=== PATIENT | male | born 1940 | race Two or more races ===

== ENCOUNTER 2022-04-14 08:35 | Inpatient (IN) | payer OTHER ==
[~2022-04-14] VITALS: Ht 172.7 cm; Wt 83.5 kg
[~2022-04-14 08:35] MED LIST: ALPR0.25 PO; FINA5TAB4 PO; PAR20T PO; TAM04C PO
[2022-04-14] MEDS ORDERED: HYDROmorphone HCL 2 MG/ML VL/or syr ONE (09:07)
[2022-04-14] MEDS ORDERED: DexAMETHasone SOD PHOS 10MG/1ML VIAL INJ ONE (09:07)
[2022-04-14] MEDS ORDERED: SODIUM CHLORIDE LOCK 20 ML ONE (09:07)
[2022-04-14] MEDS ORDERED: PROPOFOL 10 MG/ML 20 ML IV ONE (09:07)
[2022-04-14] MEDS ORDERED: NEOSTIGMINE 1 MG/ML INJ (10mg/10ML VIAL) ONE (09:07)
[2022-04-14] MEDS ORDERED: fentaNYL CITRATE 100 MCG/2 ML VL ONE (09:07)
[2022-04-14] MEDS ORDERED: MIDAZOLAM HCL 2MG/2ML 2ml VIAL (1mg/ml) ONE ×2 (09:07→12:27)
[2022-04-14] MEDS ORDERED: ONDANSETRON HCL 4 MG/2 ML VIAL ONE (09:07)
[2022-04-14] MEDS ORDERED: ceFAZolin 1GM/50ML 100 ML IV ONE (11:59)
[2022-04-14] MEDS ORDERED: METOCLOPRAMIDE HCL 5MG/ml INJ 2ml VIAL IV PRN (12:15)
[2022-04-14] MEDS ORDERED: MORPHINE SULFATE INJ 2 MG/ml SYRG IV PRN ×3 (12:15→17:30)
[2022-04-14] MEDS ORDERED: HYDROmorphone HCL 2 MG/ML VL/or syr IV PRN ×2 (12:15)
[2022-04-14] MEDS ORDERED: MINERAL OIL TOPICAL 10ml TOP ONE (15:10)
[2022-04-14] MEDS ORDERED: ACETAMINOPHEN 325 MG TAB PO PRN (17:30)
[2022-04-14] MEDS ORDERED: HYDROcodone-ACET 10/325MG TAB PO PRN (17:30)
[2022-04-14] MEDS ORDERED: ONDANSETRON HCL 4 MG/2 ML VIAL IV PRN (17:30)
[2022-04-14] MEDS ORDERED: NITROGLYCERIN 0.4 MG SL TAB SL PRN (17:30)
[2022-04-14] MEDS ORDERED: ceFAZolin 1GM/50ML 50 ML IV SCH (17:30)
[2022-04-14] MEDS ORDERED: CYCLOBENZAPRINE HCL 10 MG TAB PO ONE (18:15)
[2022-04-14] MEDS: D5W/SOD CHLO 0.9% 1,000 ML IV SCH (18:50)
[2022-04-14 20:00] VITALS: BP 111/93
[2022-04-14] MEDS: DOCUSATE SOD 100 MG CAP PO SCH (21:13)
[2022-04-14] MEDS: CYCLOBENZAPRINE HCL 10 MG TAB PO SCH (21:13)
[2022-04-14 22:00] VITALS: BP 111/93
[2022-04-15] MEDS: D5W/SOD CHLO 0.9% 1,000 ML IV SCH ×4 (03:30→23:30)
[2022-04-15 05:00] VITALS: BP 111/41
[2022-04-15] MEDS: CYCLOBENZAPRINE HCL 10 MG TAB PO SCH ×3 (05:40→21:50)
[2022-04-15 09:00] VITALS: BP 96/55
[2022-04-15] MEDS: DOCUSATE SOD 100 MG CAP PO SCH ×2 (09:32→21:50)
[2022-04-15 13:00] VITALS: BP 106/50
[2022-04-15 16:41] VITALS: BP 109/55
[2022-04-15 20:00] VITALS: BP 120/61
[2022-04-15] MEDS: PARoxetine 20 MG TAB PO SCH (21:49)
[2022-04-15 22:00] VITALS: BP 120/61
[2022-04-16 05:00] VITALS: BP 122/63
[2022-04-16] MEDS: CYCLOBENZAPRINE HCL 10 MG TAB PO SCH ×3 (05:53→21:46)
[2022-04-16] MEDS: D5W/SOD CHLO 0.9% 1,000 ML IV SCH (06:07)
[2022-04-16] MEDS: DOCUSATE SOD 100 MG CAP PO SCH ×2 (08:23→21:46)
[2022-04-16] MEDS: PARoxetine 20 MG TAB PO SCH (08:23)
[2022-04-16 09:00] VITALS: BP 106/67
[2022-04-16 13:00] VITALS: BP 123/61
[2022-04-16] MEDS ORDERED: TAMSULOSIN HYDROCHLORIDE 0.4 MG CAP PO ONE (13:30)
[2022-04-16] MEDS ORDERED: FINASTERIDE 5 MG TAB PO ONE (13:30)
[2022-04-16] MEDS: MORPHINE SULFATE INJ 2 MG/ml SYRG IV PRN (14:00)
[2022-04-16 15:16] VITALS: BP 120/51
[2022-04-16] MEDS: SUCRALFATE 1 GM/10 ML ORAL SUSP PO SCH (16:47)
[2022-04-16 16:57] VITALS: BP 115/63
[2022-04-16] MEDS ORDERED: cefTRIAXone 1GM/50ML D5W 50 ML IV ONE (17:00)
[2022-04-16] MEDS ORDERED: ACETAMINOPHEN 325 MG TAB PO PRN (17:00)
[2022-04-16] MEDS: ALPRAZolam 0.25 MG TAB PO SCH (21:47)
[2022-04-16 22:00] VITALS: BP 103/58
[2022-04-17 05:00] VITALS: BP 114/62
[2022-04-17] MEDS: CYCLOBENZAPRINE HCL 10 MG TAB PO SCH ×3 (06:09→21:52)
[2022-04-17] MEDS: SUCRALFATE 1 GM/10 ML ORAL SUSP PO SCH ×3 (06:09→17:00)
[2022-04-17 06:51] LABS: Basophils # (auto) 0 10 ^3/uL (0-0.2); Basophils % (auto) 0.4 % (0.0-2.0); Eosinophils # (auto) 0.2 10 ^3/uL (0-0.8); Eosinophils % (auto) 3.1 % (0.0-7.0); Lymphocytes # (auto) 1.6 10 ^3/uL (0.4-5.4); Monocytes # (auto) 0.7 10 ^3/uL (0-1.3); Neutrophils # (auto) 4.4 10 ^3/uL (1.6-8.6); White Blood Cell 6.9 10^3/uL (4.4-10.8)
[2022-04-17 06:53] LABS: Lymphocytes % (auto) 22.8 % (10.0-50.0); Mean Corpuscular Hemoglobin 28.4 pg (28.0-32.0); Mean Corpuscular Hgb Conc. 34.9 g/dL (32.0-36.0); Mean Corpuscular Volume 81.5 fL (80.0-100.0); Monocytes % (auto) 10.2 % (0.0-12.0); Neutrophils % (auto) 63.5 % (37.0-80.0); Nucleated Red Blood Cells % 0.1 %; Red Blood Cells 2.82 10^6/uL (4.5-5.90); Red Cell Distribution Width 14.6 % (11.8-14.3)
[2022-04-17 07:20] LABS: BUN/Creatinine Ratio 21.8; Calcium 8.1 mg/dL (8.5-10.1); Potassium 4.2 mmol/L (3.5-5.1)
[2022-04-17 08:30] VITALS: BP 99/59
[2022-04-17] MEDS: cefTRIAXone 1GM/50ML D5W 50 ML IV SCH (10:14)
[2022-04-17] MEDS: PARoxetine 20 MG TAB PO SCH (10:17)
[2022-04-17] MEDS: FINASTERIDE 5 MG TAB PO SCH (10:17)
[2022-04-17] MEDS: DOCUSATE SOD 100 MG CAP PO SCH ×2 (10:17→21:52)
[2022-04-17 13:00] VITALS: BP 103/61
[2022-04-17] MEDS: TAMSULOSIN HYDROCHLORIDE 0.4 MG CAP PO SCH (13:54)
[2022-04-17 17:14] VITALS: BP 127/56
[2022-04-17] MEDS: ALPRAZolam 0.25 MG TAB PO SCH (21:52)
[2022-04-17] MEDS: MORPHINE SULFATE INJ 2 MG/ml SYRG IV PRN (21:54)
[2022-04-17 22:00] VITALS: BP 110/59
[2022-04-18 05:10] VITALS: BP 115/73
[2022-04-18] MEDS: CYCLOBENZAPRINE HCL 10 MG TAB PO SCH ×3 (05:56→21:30)
[2022-04-18] MEDS: SUCRALFATE 1 GM/10 ML ORAL SUSP PO SCH ×3 (05:56→17:00)
[2022-04-18 09:11] VITALS: BP 105/54
[2022-04-18] MEDS: OXYCODONE W/ ACETAMINOPHEN 5/325MG TABLET PO PRN ×2 (10:43→22:19)
[2022-04-18] MEDS: DOCUSATE SOD 100 MG CAP PO SCH ×2 (10:43→21:30)
[2022-04-18] MEDS: PARoxetine 20 MG TAB PO SCH (10:43)
[2022-04-18] MEDS: FINASTERIDE 5 MG TAB PO SCH (10:43)
[2022-04-18 13:00] VITALS: BP 113/62
[2022-04-18] MEDS: cefTRIAXone 1GM/50ML D5W 50 ML IV SCH (15:57)
[2022-04-18] MEDS: TAMSULOSIN HYDROCHLORIDE 0.4 MG CAP PO SCH (15:58)
[2022-04-18 17:00] VITALS: BP 103/63
[2022-04-18] MEDS: ALPRAZolam 0.25 MG TAB PO SCH (21:30)
[2022-04-18 22:00] VITALS: BP 119/68
[2022-04-19 05:00] VITALS: BP 111/68
[2022-04-19] MEDS: CYCLOBENZAPRINE HCL 10 MG TAB PO SCH ×3 (05:33→21:03)
[2022-04-19] MEDS: SUCRALFATE 1 GM/10 ML ORAL SUSP PO SCH ×3 (06:08→18:11)
[2022-04-19] MEDS: PARoxetine 20 MG TAB PO SCH (09:50)
[2022-04-19] MEDS: DOCUSATE SOD 100 MG CAP PO SCH ×2 (09:50→21:03)
[2022-04-19] MEDS: OXYCODONE W/ ACETAMINOPHEN 5/325MG TABLET PO PRN (09:50)
[2022-04-19] MEDS: FINASTERIDE 5 MG TAB PO SCH (09:50)
[2022-04-19] MEDS: cefTRIAXone 1GM/50ML D5W 50 ML IV SCH (09:50)
[2022-04-19 10:00] VITALS: BP_SYST 101; BP_SYST 113; BP_DIAS 55; BP_DIAS 64
[2022-04-19 17:00] VITALS: BP 115/61
[2022-04-19] MEDS: TAMSULOSIN HYDROCHLORIDE 0.4 MG CAP PO SCH (18:10)
[2022-04-19] MEDS: ALPRAZolam 0.25 MG TAB PO SCH (21:04)
[2022-04-19 22:00] VITALS: BP 116/64
[2022-04-20 05:00] VITALS: BP 103/65
[2022-04-20] MEDS: SUCRALFATE 1 GM/10 ML ORAL SUSP PO SCH ×3 (05:47→19:31)
[2022-04-20] MEDS: CYCLOBENZAPRINE HCL 10 MG TAB PO SCH ×2 (05:47→19:31)
[2022-04-20 08:46] VITALS: BP 115/67
[2022-04-20] MEDS: DOCUSATE SOD 100 MG CAP PO SCH (10:26)
[2022-04-20] MEDS: cefTRIAXone 1GM/50ML D5W 50 ML IV SCH (10:26)
[2022-04-20] MEDS: PARoxetine 20 MG TAB PO SCH (10:27)
[2022-04-20] MEDS: FINASTERIDE 5 MG TAB PO SCH (10:27)
[2022-04-20 13:00] VITALS: BP 11/62
[2022-04-20] MEDS ORDERED: ACET300T4 PO (13:43)
[2022-04-20 16:50] VITALS: BP 101/50
[2022-04-20] MEDS: TAMSULOSIN HYDROCHLORIDE 0.4 MG CAP PO SCH (19:31)
== END 2022-04-20 20:50 | disposition home or self-care (01) | DRG 455 ==
LOC: SUR 08:35 → TELE 17:22 → TELE-WESTW 18:35 → WEST WING 04-18 16:50
PROVIDERS: ADMIT Orthopaedic Surgery; ATTEND Hospitalist
PROC: 01NB0ZZ Release Lumbar Nerve, Open Approach (ICD-10-PCS; 2022-04-14)
PROC: 0SG00AJ Fusion of Lumbar Vertebral Joint with Interbody Fusion Device, Posterior Approach, Anterior Column, Open Approach (ICD-10-PCS; 2022-04-14)
PROC: 0SG1071 Fusion of 2 or more Lumbar Vertebral Joints with Autologous Tissue Substitute, Posterior Approach, Posterior Column, Open Approach (ICD-10-PCS; 2022-04-14)
PROC: 0SG007J Fusion of Lumbar Vertebral Joint with Autologous Tissue Substitute, Posterior Approach, Anterior Column, Open Approach (ICD-10-PCS; principal; 2022-04-14 12:22)
DX: M48.062 Spinal stenosis, lumbar region with neurogenic claudication (principal); M96.1 Postlaminectomy syndrome, not elsewhere classified; F41.9 Anxiety disorder, unspecified; F32.A Depression, unspecified; R33.8 Other retention of urine; M54.16 Radiculopathy, lumbar region; N40.0 Benign prostatic hyperplasia without lower urinary tract symptoms; Z83.3 Family history of diabetes mellitus; Z88.2 Allergy status to sulfonamides
CPT/HCPCS: 36415; 72100; 76000; 80048; 85025; 86850; 86900; 86901; 92610; 97110; 97116; 97530; G0378; J0690; J0696; J1100; J2250; J2405; J2704; J7042